=== PATIENT | female | born 1990 | race Two or more races ===

== ENCOUNTER 2020-07-04 00:21 | Emergency (ER) | payer SELFPAY ==
[~2020-07-04] VITALS: Ht 162.6 cm; Wt 83.6 kg
[2020-07-04 01:00] LABS: BILIRUBIN,URINE NEGATIVE (NEG); CLARITY,URINE CLEAR; COLOR,URINE YELLOW; NITRITE,URINE NEGATIVE (NEG); PROTEIN,URINE NEGATIVE (NEG-TRACE); UROBILINOGEN,URINE 0.2 mg/dL (0.2 mg/dL)
[2020-07-04 01:12] LABS: BACTERIA,URINE FEW /HPF (0-FEW)
[2020-07-04] MEDS ORDERED: SIMETHICONE 80 MG TAB.CHEW PO ONE (01:30)
[2020-07-04] MEDS ORDERED: KETOROLAC 60 MG/2 ML VIAL. IM ONE (01:30)
--- NOTE | 2020-07-04 02:00 | RAD ---
INDICATION: Reason: bloating, constipation, SBO? / Spl. Instructions: / History: COMPARISON: None. IMPRESSION: 3 views of the chest and abdomen obtained. Cardiac silhouette is unremarkable. There is some mild haz iness at the lower lungs bilaterally. Could be from atelectasis but would correlate with symptoms to ensure that there is not a groundglass infiltrate contributing. Moderate stool in the right side of t he colon. Air scattered throughout the large and small bowel in a nonspecific but not grossly obstruc tive pattern. There is some prominent mucosal folds at the transverse colon. Would correlate with sym ptoms given that a region of wall thickening from causes such as colitis could have this appearance. This could also be from a region of contraction. Electronically signed by: Johnie Spencer MD (07/04/2020 1:58 AM) [id number]
[2020-07-04] MEDS ORDERED: HYOSCYAMINE 0.125 MG TAB.RAPDIS PO ONE (02:45)
[2020-07-04 02:57] VITALS: BP 95/50
--- NOTE | 2020-07-04 03:10 | RAD ---
INDICATION: Reason: severe pelvic pain / Spl. Instructions: / History: COMPARISON: None. TECHNIQUE: Grayscale and color ultrasound images uterus and adnexa. Transabdominal and transvaginal images obtained. Transvaginal images were needed to better visualize structures that were limited on transabdominal imaging. FINDINGS: Uterus: 101 x 93 x 45 mm. The endometrial stripe is not well seen. Multiple masses within the uterus including one posteriorly measuring 40 x 35 mm, posteriorly at lowe r uterine segment measuring 68 x 74 mm and one anteriorly measuring 60 x 40 mm. Ovaries are obscured by bowel gas. IMPRESSION: * Multiple masses are seen within the uterus and most commonly from fibroid. * The ovaries are obscured by overlying structures. * Small amount of free fluid within the cul-de-sac. Electronically signed by: Johnie Spencer MD (07/04/2020 3:07 AM) [id number]
--- NOTE | 2020-07-04 03:14 | ED.ADGEN ---
Past Medical History Past Medical History: No Pertinent History Past Surgical History: No Surgical History Smoking Status: Never Smoker Alcohol Use: None General Adult EDM: Chief Complaint: MENSTRUAL PAIN/CRAMPS HPI: HPI: Patient is a 29-year-old female who presents to the emergency room complaining of severe lower abdominal cramping. Patient states she gets cramps like this every month with her. But typically they go away much more quickly than this. She has been on her period for the last 7 days. She states they have been constant since the start of her period. She has tried multiple things at home without any kind of relief. Typically her cramps only last 2 or 3 days but this has been very consistent with what her cramps are normally like. She denies vomiting but she does have some nausea and constipation. She denies any d ysuria. She does not have any abnormal vaginal discharge. She has never seen [facility] for her periods. She has tried heating pads and Aleve at home. Review of Systems: Review of Systems: Complete ROS is negative unless otherwise documented in HPI Current Medications: Current Medications Medications (Trade) Dose Ordered Sig/Gin Start Time Stop Time Status Last Admin Dose Admin Hyoscyamine (Anaspaz) 0.25 mg 1X ONCE 07/04/20 02:45 07/04/20 02:49 DC 07/04/20 02:56 0.25 MG Ketorolac Tromethamine (Toradol Im) 60 mg 1X ONCE 07/04/20 01:30 07/04/20 01:31 DC 07/04/20 01:22 60 MG Simethicone (Gas-X) 80 mg 1X ONCE 07/04/20 01:30 07/04/20 01:31 DC 07/04/20 01:23 80 MG Allergies: Allergies: Allergies Coded Allergies Type Severity Reaction Last Updated Verified No Known Drug Allergies 07/04/20 No Physical Exam: PE: General: Awake, alert, mild distress, crying well Nourished, well hydrated. Cooperative HEENT: Atraumatic, EOMI, PERRL, airway patent, moist oral mucosa Neck: Supple, trachea midline Respiratory: CTA bilaterally, normal effort, no wheezing/crackles CV: RRR, no murmur, cap refill <2 GI: Soft, nondistended, nontender, no masses MSK: No obvious deformities Skin: Warm, dry, intact Neuro: A&O x3, speech NL, sensory and motor grossly intact, no focal deficits Psych: Normal affect, normal mood, not suicidal or homicidal Current Patient Data: Labs: Laboratory Tests Test 07/04/20 00:33 07/04/20 00:53 Urine Collection Type Unknown Urine Color Yellow Urine Clarity Clear Urine pH 7.0 (<5.0-8.0) Urine Specific [place] 1.025 (1.000-1.030) Urine Protein Negative mg/dL (NEG-TRACE) Urine Glucose (UA) Negative mg/dL (NEG) Urine Ketones (Stick) Negative mg/dL (NEG) Urine Blood Trace (NEG) Urine Nitrite Negative (NEG) Urine Bilirubin Negative (NEG) Urine Urobilinogen Dipstick 0.2 mg/dL (0.2 mg/dL) Urine Leukocyte Esterase Negative (NEG) Urine RBC 3-5 /HPF (0-2) Urine WBC 1-4 /HPF (0-4) Urine Squamous Epithelial Cells Few /LPF Urine Bacteria Few /HPF (0-FEW) Urine Mucus Marked /LPF POC Urine HCG, Qualitative Hcg negative (Negative) Vital Signs: Vital Signs Date Time Temp Pulse Resp B/P (MAP) Pulse Ox O2 Delivery O2 Flow Rate FiO2 07/04/20 02:57 60 16 95/50 (65) 98 Room Air 07/04/20 00:45 98.6 98.6 EKG: EKG: [] Heart Score: Risk Factors: Risk Factors: DM, Current or recent (<one month) smoker, HTN, HLP, family his tory of CAD, obesity. Risk Scores: Score 0 - 3: 2.5% MACE over next 6 weeks - Discharge Home Score 4 - 6: 20.3% MACE over next 6 weeks - Admit for Clinical Observation Score 7 - 10: 72.7% MACE over next 6 weeks - Early Invasive Strategies Radiology/Procedures: Radiology/Procedures: [] Course & Med Decision Making: Course & Med Decision Making Pertinent Labs and Imaging studies reviewed. (See chart for details) Patient is a 29-year-old female who presents the emergency room as dysfunctional uterine bleeding. X-ray was done to rule out an obstruction does not show any signs of air-fluid levels. Patient is not . Patient was given Toradol and simethicone on arrival. After 45 minutes patient continues to cry and have no relief of symptoms. Levsin was ordered and ultrasound was done given her severe pain. Ultrasound shows multiple fibroids. Patient did have resolution of her symptoms. I have highly recommended that she follows up with an [facility]. Patient's test results and vitals while in the ED were fully reviewed and discussed with the patient. Patient is stable and at this time does not need admission to the hospital. We have discussed strict return precautions and the importance of following up with their Primary Care Physician. Patient stated understanding and was given an opportunity to ask any questions. Patient is in agreement with plan. Dragon Disclaimer: [email or web address] Disclaimer: This electronic medical record was generated, in whole or in part, using a voice recognition dictation system. Departure Departure Impression: Primary Impression: Dysfunctional uterine bleeding Additional Impression: Fibroid, uterine Disposition: 01 DC HOME SELF CARE/HOMELESS Condition: STABLE Referrals: NO PCP (PCP) Patient Instructions: Uterine Fibroid, [id number] Scripts Hyoscyamine Sulfate (LEVSIN-SL) 0.125 Mg Tab.subl 0.125 MG SL Q4HRS PRN for cramps, #20 TAB Prov: JESSICA LUGO MD 07/04/20 Problem Qualifiers JESSICA LUGO MD Jul 04, 2020 03:14
[2020-07-04] MEDS ORDERED: HYOS0.1265 SL (03:25)
[2020-07-04] MEDS ORDERED: OXYC1TAB15 PO (23:35)
[2020-07-04] MEDS ORDERED: KETO10TA PO (23:35)
== END 2020-07-04 03:35 | disposition home or self-care (01) ==
LOC: ER 00:21
DX: N93.8 Other specified abnormal uterine and vaginal bleeding (principal); D25.9 Leiomyoma of uterus, unspecified; R11.0 Nausea; R10.30 Lower abdominal pain, unspecified
CPT/HCPCS: 74022; 76856; 81001; 81025; 96372; 99285; J1885

== ENCOUNTER 2020-07-04 20:33 | Emergency (ER) | payer SELFPAY ==
[~2020-07-04] VITALS: Ht 162.6 cm; Wt 37.1 kg
[~2020-07-04 20:33] MED LIST: HYOS0.1265 SL
[2020-07-04] MEDS ORDERED: CONTRAST GIVEN. MC PRN (21:15)
[2020-07-04] MEDS ORDERED: IOHEXOL 300 MG/ML 100ML VIAL. IV ONE (21:15)
[2020-07-04] MEDS ORDERED: IOHEXOL 240 MG/ML 50ML VIAL. PO ONE (21:15)
[2020-07-04 21:43] LABS: BASO # 0.1 x10^3/uL (0.0-0.2); BASO % 1 % (0-3); EOS # 0.3 x10^3/uL (0.0-0.7); EOS % 3 % (0-3); HEMATOCRIT 39.2 % (36.0-47.0); HEMOGLOBIN 13.2 g/dL (12.0-15.5); LYMPH # 3.8 x10^3/uL (1.0-4.8); LYMPH % 33 % (24-48); MEAN CORPUSCULAR HEMOGLOBIN 28 pg (25-35); MEAN CORPUSCULAR HGB CONC 34 g/dL (31-37); MEAN CORPUSCULAR VOLUME 83 fL (79-100); MONO # 0.8 x10^3/uL (0.0-1.1); MONO % 7 % (0-9); NEUT # 6.6 x10^3/uL (1.8-7.7); NEUT % 57 % (31-73); PLATELET COUNT 445 x10^3/uL (140-400); RED BLOOD COUNT 4.71 x10^6/uL (3.50-5.40); WHITE BLOOD COUNT 11.7 x10^3/uL (4.0-11.0)
[2020-07-04 21:57] LABS: CALCIUM 8.9 mg/dL (8.5-10.1); CREATININE 0.7 mg/dL (0.6-1.0); GFR 100.4
[2020-07-04] MEDS ORDERED: MORPHINE SULFATE 10 MG/ML VIAL. IV ONE (22:00)
[2020-07-04] MEDS ORDERED: ONDANSETRON PF 4 MG/2 ML VIAL. IVP ONE (22:00)
[2020-07-04] MEDS ORDERED: IV NORMAL SALINE 1000ML BAG 1,000 ML IV ONE (22:00)
[2020-07-04 22:04] LABS: ALBUMIN 3.8 g/dL (3.4-5.0); ALBUMIN/GLOBULIN RATIO 1.1 (1.0-1.7); TOTAL BILIRUBIN 0.5 mg/dL (0.2-1.0); TOTAL PROTEIN 7.2 g/dL (6.4-8.2)
--- NOTE | 2020-07-04 22:14 | ED.ADGEN ---
Past Medical History Past Medical History: No Pertinent History Past Surgical History: No Surgical History Smoking Status: Never Smoker Alcohol Use: None General Adult EDM: Chief Complaint: ABDOMINAL PAIN HPI: HPI: Patient is a 29-year-old female who presents to the emergency room complaining of mid abdominal pain down that has been ongoing for the last week. She was evaluated here in the emergency room for the same symptoms last night and had an ultrasound done of her uterus that showed several fibroids. She states that the pain came back shortly after being discharged home. She continues to have a lot of cramping and she is bleeding. She thinks that it is possible that this may be rectal bleeding but she is unsure. She states the pain is severe and constant. She has had some nausea and vomiting. She denies any kind of fever Review of Systems: Review of Systems: Complete ROS is negative unless otherwise documented in HPI Current Medications: Current Medications Medications (Trade) Dose Ordered Sig/Gin Start Time Stop Time Status Last Admin Dose Admin Info (CONTRAST GIVEN -- Rx MONITORING) 1 each PRN DAILY PRN 07/04/20 21:15 07/06/20 21:14 Iohexol (Omnipaque 240 Mg/ml) 50 ml 1X ONCE 07/04/20 21:15 07/04/20 21:16 DC 07/04/20 20:55 50 ML Iohexol (Omnipaque 300 Mg/ml) 75 ml 1X ONCE 07/04/20 21:15 07/04/20 21:16 DC 07/04/20 22:08 75 ML Ketorolac Tromethamine (Toradol 30mg Vial) 30 mg 1X ONCE 07/04/20 23:30 07/04/20 23:31 DC 07/04/20 23:34 30 MG Morphine Sulfate (Morphine Sulfate) 5 mg 1X ONCE 07/04/20 22:00 07/04/20 22:01 DC 07/04/20 21:58 5 MG Ondansetron HCl (Zofran) 4 mg 1X ONCE 07/04/20 22:00 07/04/20 22:01 DC 07/04/20 21:57 4 MG Sodium Chloride 1,000 ml @ 1,000 mls/hr 1X ONCE 07/04/20 22:00 07/04/20 22:59 DC 07/04/20 21:57 1,000 MLS/HR Allergies: Allergies: Allergies Coded Allergies Type Severity Reaction Last Updated Verified No Known Drug Allergies 07/04/20 No Physical Exam: PE: General: Awake, alert, NAD. Well Nourished, well hydrated. Cooperative HEENT: Atraumatic, EOMI, PERRL, airway patent, moist oral mucosa Neck: Supple, trachea midline Respiratory: CTA bilaterally, normal effort, no wheezing/crackles CV: RRR, no murmur, cap refill <2 GI: Soft, distended, diffuse tenderness worse in the left lower abdomen MSK: No obvious deformities Skin: Warm, dry, intact Neuro: A&O x3, speech NL, sensory and motor grossly intact, no focal deficits Psych: Normal affect, normal mood, not suicidal or homicidal Current Patient Data: Labs: Laboratory Tests Test 07/04/20 21:30 White Blood Count 11.7 x10^3/uL (4.0-11.0) H Red Blood Count 4.71 x10^6/uL (3.50-5.40) Hemoglobin 13.2 g/dL (12.0-15.5) Hematocrit 39.2 % (36.0-47.0) Mean Corpuscular Volume 83 fL (79-100) Mean Corpuscular Hemoglobin 28 pg (25-35) Mean Corpuscular Hemoglobin Concent 34 g/dL (31-37) Red Cell Distribution Width 13.0 % (11.5-14.5) Platelet Count 445 x10^3/uL (140-400) H Neutrophils (%) (Auto) 57 % (31-73) Lymphocytes (%) (Auto) 33 % (24-48) Monocytes (%) (Auto) 7 % (0-9) Eosinophils (%) (Auto) 3 % (0-3) Basophils (%) (Auto) 1 % (0-3) Neutrophils # (Auto) 6.6 x10^3/uL (1.8-7.7) Lymphocytes # (Auto) 3.8 x10^3/uL (1.0-4.8) Monocytes # (Auto) 0.8 x10^3/uL (0.0-1.1) Eosinophils # (Auto) 0.3 x10^3/uL (0.0-0.7) Basophils # (Auto) 0.1 x10^3/uL (0.0-0.2) Sodium Level 140 mmol/L (136-145) Potassium Level 4.0 mmol/L (3.5-5.1) Chloride Level 102 mmol/L (98-107) Carbon Dioxide Level 26 mmol/L (21-32) Anion Gap 12 (6-14) Blood Urea Nitrogen 12 mg/dL (7-20) Creatinine 0.7 mg/dL (0.6-1.0) Estimated GFR (Cockcroft-Gault) 100.4 BUN/Creatinine Ratio 17 (6-20) Glucose Level 99 mg/dL (70-99) Calcium Level 8.9 mg/dL (8.5-10.1) Total Bilirubin 0.5 mg/dL (0.2-1.0) Aspartate Amino Transferase (AST) 18 U/L (15-37) Alanine Aminotransferase (ALT) 39 U/L (14-59) Alkaline Phosphatase 88 U/L (46-116) Total Protein 7.2 g/dL (6.4-8.2) Albumin 3.8 g/dL (3.4-5.0) Albumin/Globulin Ratio 1.1 (1.0-1.7) Laboratory Tests 07/04/20 21:30 Laboratory Tests 07/04/20 21:30 Vital Signs: Vital Signs Date Time Temp Pulse Resp B/P (MAP) Pulse Ox O2 Delivery O2 Flow Rate FiO2 07/04/20 20:35 98.2 84 18 113/84 (94) 98 Room Air 98.2 EKG: EKG: [] Heart Score: Risk Factors: Risk Factors: DM, Current or recent (<one month) smoker, HTN, HLP, family history of CAD, obesity. Risk Scores: Score 0 - 3: 2.5% MACE over next 6 weeks - Discharge Home Score 4 - 6: 20.3% MACE over next 6 weeks - Admit for Clinical Observation Score 7 - 10: 72.7% MACE over next 6 weeks - Early Invasive Strategies Radiology/Procedures: Radiology/Procedures: [] Course & Med Decision Making: Course & Med Decision Making Pertinent Labs and Imaging studies reviewed. (See chart for details) Patient 29-year-old female presents to the emergency room complaining of severe abdominal pain. I evaluated this patient yesterday for the same complaints. Patient continues to have severe pain. CT abdomen pelvis and abdominal labs were ordered. Lab work is unremarkable. CT abdomen pelvis shows a large uterus with multiple fibroids. Pain is likely secondary to her fibroids. We will treat her symptomatically. I have recommended that she follows up with [facility] as soon as possible and that she should call them tomorrow. Patient's test results and vitals while in the ED were fully reviewed and discussed with the patient. Patient is stable and at this time does not need admission to the hospital. We have discussed strict return precautions and the importance of following up with their Primary Care Physician. Patient stated understanding and was given an opportunity to ask any questions. Patient is in agreement with plan. Dragon Disclaimer: Dragon Disclaimer: Complete ROS is negative unless otherwise documented in HPI Departure Departure Impression: Primary Impression: Uterine fibroid Additional Impression: Abdominal cramping Disposition: 01 DC HOME SELF CARE/HOMELESS Condition: IMPROVED Referrals: NO PCP (PCP) CARLOS EDUARDO RAMIREZ Jr, MD Patient Instructions: Uterine Bleeding, Dysfunctional Scripts Oxycodone/Apap 5-325 (PERCOCET 5-325 MG TABLET ) 1 Each Tablet 1 TAB PO PRN Q6HRS PRN for PAIN, #10 TAB 0 Refills Prov: JESSICA LUGO MD 07/04/20 Ketorolac Tromethamine (KETOROLAC TROMETHAMINE) 10 Mg Tablet 1 TAB PO TID PRN for cramping, #15 TAB Prov: JESSICA LUGO MD 07/04/20 Problem Qualifiers JESSICA LUGO MD Jul 04, 2020 22:14
--- NOTE | 2020-07-04 22:26 | RAD ---
Exam: CT of abdomen and pelvis with contrast INDICATION: Abdominal pain TECHNIQUE: Sequential axial images through the abdomen and pelvis obtained following the administrati on of 75 mL of Omni 300 IV contrast. Sagittal and coronal reformatted images were reconstructed from the axial data and reviewed. Comparisons: None FINDINGS: Heart size is normal. No pericardial strandy opacities at dependent portion lungs likely representing atelectasis. Liver, spleen, pancreas, gallbladder and adrenals are unremarkable. No perinephric inflammation or hydronephrosis. No renal or ureteral calculi are identified. Bladder is decompressed not well evaluated. Uterus is enlarged with numerous hypoattenuating masses w ithin the uterus. No abnormal adnexal mass. Large and small bowel are unremarkable. Appendix is normal. No free intra-abdominal air or fluid. No obstruction. Abdominal aorta has a normal course and caliber. Abdominal vasculature is patent. No enlarged abdominal lymph nodes are identified. No suspicious osseous lesions or acute fractures. IMPRESSION: 1. Enlarged uterus with numerous hypoattenuating masses favored represent fibroid uterus. 2. Otherwise, no acute process identified within the abdomen or pelvis. Exposure: One or more of the following in the visualized dose reduction techniques were utilized for this examination: 1. Automated exposure control 2. Adjustment of the MA and/or KV according to patient size 3. Use of iterative of reconstructive technique Electronically signed by: Yanet Rios MD (07/04/2020 10:23 PM) [facility]
[2020-07-04] MEDS ORDERED: KETOROLAC 30 MG/ML VIAL. IVP ONE (23:30)
[2020-07-04] MEDS ORDERED: KETO10TA PO (23:35)
[2020-07-04] MEDS ORDERED: OXYC1TAB15 PO (23:35)
[2020-07-05] MEDS ORDERED: ONDANSETRON PF 4 MG/2 ML VIAL. IVP ONE (00:30)
[2020-07-05] MEDS ORDERED: METHOCARBAMOL 750 MG TABLET PO ONE (00:45)
[2020-07-05 01:26] VITALS: BP 122/60
[2020-07-05] MEDS ORDERED: KETOROLAC 30 MG/ML VIAL. IVP ONE (02:00)
== END 2020-07-05 02:20 | disposition home or self-care (01) ==
LOC: ER 20:33
DX: D25.9 Leiomyoma of uterus, unspecified (principal); R11.2 Nausea with vomiting, unspecified; R10.30 Lower abdominal pain, unspecified
CPT/HCPCS: 36415; 74177; 80053; 85025; 96361; 96374; 96375; 99285; J1885; J2270; J2405; J7030; Q9966; Q9967

== ENCOUNTER 2020-09-16 22:23 | Emergency (ER) | payer SELFPAY ==
[~2020-09-16] VITALS: Ht 160 cm; Wt 84.0 kg
[~2020-09-16 22:23] MED LIST changes: +KETO10TA PO; +OXYC1TAB15 PO
[2020-09-16 23:09] LABS: BASO # 0.1 x10^3/uL (0.0-0.2); BASO % 1 % (0-3); EOS % 0 % (0-3); HEMATOCRIT 41.3 % (36.0-47.0); LYMPH # 1.7 x10^3/uL (1.0-4.8); LYMPH % 13 % (24-48); MEAN CORPUSCULAR HEMOGLOBIN 27 pg (25-35); MEAN CORPUSCULAR HGB CONC 34 g/dL (31-37); MEAN CORPUSCULAR VOLUME 80 fL (79-100); MONO # 0.3 x10^3/uL (0.0-1.1); MONO % 2 % (0-9); NEUT # 11.7 x10^3/uL (1.8-7.7); NEUT % 85 % (31-73); PLATELET COUNT 418 x10^3/uL (140-400); RED BLOOD COUNT 5.14 x10^6/uL (3.50-5.40); RED CELL DISTRIBUTION WIDTH 13.7 % (11.5-14.5); WHITE BLOOD COUNT 13.8 x10^3/uL (4.0-11.0)
[2020-09-16 23:10] LABS: BILIRUBIN,URINE NEGATIVE (NEG); CLARITY,URINE CLEAR; COLOR,URINE YELLOW; NITRITE,URINE NEGATIVE (NEG); PH,URINE 8.5 (<5.0-8.0); PROTEIN,URINE NEGATIVE (NEG-TRACE); UROBILINOGEN,URINE 0.2 mg/dL (0.2 mg/dL)
[2020-09-16 23:17] LABS: BACTERIA,URINE FEW /HPF (0-FEW); RBC,URINE RARE /HPF (0-2); WBC,URINE RARE /HPF (0-4)
[2020-09-16 23:26] LABS: CALCIUM 8.6 mg/dL (8.5-10.1); CREATININE 0.7 mg/dL (0.6-1.0); GFR 100.4; POTASSIUM 3.7 mmol/L (3.5-5.1)
[2020-09-16 23:29] LABS: BARBITURATES NEG (NEG); BENZODIAZEPINES NEG (NEG); CANNABINOIDS NEG (NEG); COCAINE NEG (NEG); METHADONE NEG (NEG); OPIATES NEG (NEG); PHENCYCLIDINE NEG (NEG)
[2020-09-16 23:30] LABS: AMPHETAMINE/METHAMPHETAMINE NEG (NEG)
[2020-09-16] MEDS ORDERED: LIDO:MAALOX 1:1 20 ML SINGLE DOSE. SWSW ONE (23:30)
[2020-09-16] MEDS ORDERED: PROCHLORPERAZINE 10 MG/2 ML VIAL. IV ONE (23:30)
[2020-09-16] MEDS ORDERED: MORPHINE SULFATE 10 MG/ML VIAL. IV ONE (23:30)
[2020-09-16] MEDS ORDERED: FAMOTIDINE 20 MG/2 ML VIAL IVP ONE (23:30)
[2020-09-16] MEDS ORDERED: IV NORMAL SALINE 1000ML BAG 1,000 ML IV ONE (23:30)
[2020-09-16 23:33] LABS: ALBUMIN 3.8 g/dL (3.4-5.0); MAGNESIUM 1.7 mg/dL (1.8-2.4); TOTAL BILIRUBIN 0.7 mg/dL (0.2-1.0); TOTAL PROTEIN 7.6 g/dL (6.4-8.2)
--- NOTE | 2020-09-16 23:47 | PHYS DOC ---
Past Medical History Past Medical History: No Pertinent History, Anxiety Past Surgical History: No Surgical History Additional Past Surgical Histo: BIOPSY RIGHT BREST Smoking Status: Never Smoker Alcohol Use: None General Adult EDM: Chief Complaint: ABDOMINAL PAIN HPI: HPI: Patient is a 29 year old female with a history of fibroids presenting to the ED today complaining of 10 out of 10 epigastric abdominal pain with nausea vomiting, pain described as sharp and constant, symptoms began at 8:30 AM this morning. Patient is in the ED thrashing around the bed, restless, appears anxious, reports history of anxiety. She states she had similar symptoms in June but this pain is slightly higher than what she had in June. She states in June she was seen in the ED twice for abdominal pain and diagnosed with fibroids. She states her menstrual cycle began today. She states she was seen in [place] with epigastric abdominal pain in July 2020, she states she was diagnosed with inflammation in her intestines. Boyfriend interpreted for [place] Review of Systems: Review of Systems: Constitutional: Denies fever or chills. [] Eyes: Denies change in visual acuity. [] HENT: Denies nasal congestion or sore throat. [] Respiratory: Denies cough or shortness of breath. [] Cardiovascular: Denies chest pain or edema. [] GI: Reports abdominal pain, nausea vomiting, abdominal bloody stools or diarrhea. [] : Denies dysuria. [] Musculoskeletal: Denies back pain or joint pain. [] Integument: Denies rash. [] Neurologic: Denies headache, focal weakness or sensory changes. [] Psychiatric: Reports anxiety Heart Score: Risk Factors: Risk Factors: DM, Current or recent (<one month) smoker, HTN, HLP, family history of CAD, obesity. Risk Scores: Score 0 - 3: 2.5% MACE over next 6 weeks - Discharge Home Score 4 - 6: 20.3% MACE over next 6 weeks - Admit for Clinical Observation Score 7 - 10: 72.7% MACE over next 6 weeks - Early Invasive Strategies Current Medications: Current Medications Medications (Trade) Dose Ordered Sig/Gin Start Time Stop Time Status Last Admin Dose Admin Famotidine (Pepcid Vial) 20 mg 1X ONCE 09/16/20 23:30 09/16/20 23:31 DC 09/16/20 23:18 20 MG Morphine Sulfate (Morphine Sulfate) 5 mg 1X ONCE 09/16/20 23:30 09/16/20 23:31 DC 09/16/20 23:19 5 MG Multi-Ingredient Mouthwash/Gargle (Gi Cocktail) 20 ml 1X ONCE 09/16/20 23:30 09/16/20 23:31 DC 09/16/20 23:17 20 ML Prochlorperazine Edisylate (Compazine) 10 mg 1X ONCE 09/16/20 23:30 09/16/20 23:31 DC 09/16/20 23:17 10 MG Sodium Chloride 1,000 ml @ 1,000 mls/hr 1X ONCE 09/16/20 23:30 09/17/20 00:29 09/16/20 23:17 1,000 MLS/HR Allergies: Allergies: Allergies Coded Allergies Type Severity Reaction Last Updated Verified No Known Drug Allergies 07/04/20 No Physical Exam: PE: Constitutional: Well developed, well nourished, no acute distress, non-toxic appearance. [] HENT: Normocephalic, atraumatic, bilateral external ears normal, oropharynx moist, no oral exudates, nose normal. [] Eyes: PERRLA, EOMI, conjunctiva normal, no discharge. [] Neck: Normal range of motion, no tenderness, supple, no stridor. [] Cardiovascular:Heart rate regular rhythm, no murmur [] Lungs & Thorax: Bilateral breath sounds clear to auscultation [] Abdomen: Bowel sounds normal, soft, mild epigastric tenderness, no right lower quadrant tenderness, no masses, no pulsatile masses. [] Skin: Warm, dry, no erythema, no rash. [] Back: No tenderness, no CVA tenderness. [] Extremities: No tenderness, no cyanosis, no clubbing, ROM intact, no edema. [] Neurologic: Alert and oriented X 3, normal motor function, normal sensory function, no focal deficits noted. [] Psychologic: Anxious, thrashing herself around the bed. Current Patient Data: Labs: Laboratory Tests Test 09/16/20 22:50 09/16/20 22:54 09/16/20 22:58 Urine Collection Type Void Urine Color Yellow Urine Clarity Clear Urine pH 8.5 (<5.0-8.0) Urine Specific [place] 1.025 (1.000-1.030) Urine Protein Negative mg/dL (NEG-TRACE) Urine Glucose (UA) Negative mg/dL (NEG) Urine Ketones (Stick) >=80 mg/dL (NEG) Urine Blood Negative (NEG) Urine Nitrite Negative (NEG) Urine Bilirubin Negative (NEG) Urine Urobilinogen Dipstick 0.2 mg/dL (0.2 mg/dL) Urine Leukocyte Esterase Negative (NEG) Urine RBC Rare /HPF (0-2) Urine WBC Rare /HPF (0-4) Urine Squamous Epithelial Cells Mod /LPF Urine Bacteria Few /HPF (0-FEW) Urine Mucus Mod /LPF Urine Opiates Screen Neg (NEG) Urine Methadone Screen Neg (NEG) Urine Barbiturates Neg (NEG) Urine Phencyclidine Screen Neg (NEG) Urine Amphetamine/Methamphetamine Neg (NEG) Urine Benzodiazepines Screen Neg (NEG) Urine Cocaine Screen Neg (NEG) Urine Cannabinoids Screen Neg (NEG) Urine Ethyl Alcohol Neg (NEG) POC Urine HCG, Qualitative Hcg negative (Negative) White Blood Count 13.8 x10^3/uL (4.0-11.0) H Red Blood Count 5.14 x10^6/uL (3.50-5.40) Hemoglobin 14.0 g/dL (12.0-15.5) Hematocrit 41.3 % (36.0-47.0) Mean Corpuscular Volume 80 fL (79-100) Mean Corpuscular Hemoglobin 27 pg (25-35) Mean Corpuscular Hemoglobin Concent 34 g/dL (31-37) Red Cell Distribution Width 13.7 % (11.5-14.5) Platelet Count 418 x10^3/uL (140-400) H Neutrophils (%) (Auto) 85 % (31-73) H Lymphocytes (%) (Auto) 13 % (24-48) L Monocytes (%) (Auto) 2 % (0-9) Eosinophils (%) (Auto) 0 % (0-3) Basophils (%) (Auto) 1 % (0-3) Neutrophils # (Auto) 11.7 x10^3/uL (1.8-7.7) H Lymphocytes # (Auto) 1.7 x10^3/uL (1.0-4.8) Monocytes # (Auto) 0.3 x10^3/uL (0.0-1.1) Eosinophils # (Auto) 0.0 x10^3/uL (0.0-0.7) Basophils # (Auto) 0.1 x10^3/uL (0.0-0.2) Sodium Level 137 mmol/L (136-145) Potassium Level 3.7 mmol/L (3.5-5.1) Chloride Level 100 mmol/L (98-107) Carbon Dioxide Level 20 mmol/L (21-32) L Anion Gap 17 (6-14) H Blood Urea Nitrogen 12 mg/dL (7-20) Creatinine 0.7 mg/dL (0.6-1.0) Estimated GFR (Cockcroft-Gault) 100.4 BUN/Creatinine Ratio 17 (6-20) Glucose Level 163 mg/dL (70-99) H Calcium Level 8.6 mg/dL (8.5-10.1) Magnesium Level 1.7 mg/dL (1.8-2.4) L Total Bilirubin 0.7 mg/dL (0.2-1.0) Aspartate Amino Transferase (AST) 13 U/L (15-37) L Alanine Aminotransferase (ALT) 21 U/L (14-59) Alkaline Phosphatase 90 U/L (46-116) Total Protein 7.6 g/dL (6.4-8.2) Albumin 3.8 g/dL (3.4-5.0) Albumin/Globulin Ratio 1.0 (1.0-1.7) Lipase 59 U/L (73-393) L Ethyl Alcohol Level < 10 mg/dL (0-10) Laboratory Tests 09/16/20 22:58 Laboratory Tests 09/16/20 22:58 Vital Signs: Vital Signs Date Time Temp Pulse Resp B/P (MAP) Pulse Ox O2 Delivery O2 Flow Rate FiO2 09/16/20 23:19 30 100 09/16/20 23:09 98.4 68 151/79 (103) 98.4 EKG: EKG: [] Radiology/Procedures: Radiology/Procedures: []PROCEDURE: CT ABDOMEN PELVIS WO CONTRAST Study: CT abdomen/pelvis without intravenous contrast Indication: Abdominal pain. Comparison: 07/04/2020 Technique: Helical CT imaging performed of the abdomen and pelvis without the use of intravenous contrast. Sagittal and coronal reformats were obtained. One or more of the following individualized dose reduction techniques were utilized for this examination: 1. Automated exposure control 2. Adjustment of the mA and/or kV according to patient size 3. Use of iterative reconstruction technique. Findings: Inherently limited evaluation without intravenous contrast. Chest: No significant interval change. Redemonstration of partially imaged masslike foci within both breasts which have not significant changed in size and most likely represent fibroadenomas. Liver: No focal parenchymal abnormality. Gallbladder/Biliary Tree: No CT manifestations of acute cholecystitis. Normal common duct caliber. Pancreas: Unremarkable. Spleen: Unremarkable. Adrenal Glands: Unremarkable. Kidneys/Ureters/Bladder: No nephrolithiasis or collecting system dilatation. Unremarkable bladder. Reproductive Organs: Redemonstrated enlarged and lobulated uterus typical of multiple underlying fibroids. The uterus overall has not significantly changed in size. The fibroids were better seen on the comparison exam which was with contrast. Colon: Within normal limits. Appendix: Normal. Small Bowel: Nonobstructed. Stomach: Unremarkable. Vasculature: Nonaneurysmal aorta. Lymph Nodes: Within normal limits. Peritoneum and Body Wall: Small volume free pelvic fluid which is most likely physiologic given patient age. No pneumoperitoneum. Bones: No acute or aggressive osseous process. Miscellaneous: None. Impression: 1. No acute abnormality seen throughout the abdomen or pelvis. 2. Redemonstration of several prominent fibroids. There are also masslike foci in both breasts that have not significantly changed from the prior and are most likely fibroadenomas. Recommend correlation with clinical exam. Electronically signed by: SARAH BARROSO MD (09/16/2020 11:56 PM) [facility] DICTATED and SIGNED BY: SARAH BARROSO MD DATE: 09/16/20 [id number] 0 Course & Med Decision Making: Course & Med Decision Making Pertinent Labs and Imaging studies reviewed. (See chart for details) This is a 29-year-old female patient with known history of anxiety and uterine fibroids presenting to the ED today complaining of moderate epigastric abdominal pain with nausea and vomiting that began today. Also complaining of anxiety. Patient is thrashing around the bed. Appears very anxious. CBC with a WBC of 13.8, CMP with no acute findings. UDS is negative. UA negative for UTI, noted for ketones. Given IV fluids, GI cocktail, famotidine, Compazine and [address] of the abdomen and pelvic noted for fibroids otherwise no acute findings. Also noted for fibroadenoma both breasts. Discharge to home. Follow-up with [facility] [place] Disclaimer: [place] Disclaimer: This electronic medical record was generated, in whole or in part, using a voice recognition dictation system. Departure Departure Impression: Primary Impression: Anxiety Additional Impressions: Epigastric pain Uterine fibroid Qualified Codes: D25.9 - Leiomyoma of uterus, unspecified Fibroadenoma of both breasts Disposition: HOME SELF CARE/HOMELESS Condition: STABLE Referrals: NO PCP (PCP) ADONIS FORTE MD followup with your OBGYN in 1 week Patient Instructions: Anxiety and Panic Attacks, [id number], Fibroadenoma, [id number], Uterine Fibroid, [id number] Additional Instructions: You were evaluated in the emergency room, you are noted to have fibroids. Please follow-up with an [facility]. You also have fibroadenoma/breast masses in both breasts please follow up with the OBGYN for this too Scripts Naproxen (NAPROXEN) 500 Mg Tablet 1 TAB PO BID PRN for PAIN, #30 TAB 0 Refills Prov: KRISTIAN PEOPLES APRN 09/17/20 Hydrocodone Bit/Acetaminophen (HYDROCODONE-APAP 5-325 ) 1 Tab Tablet 1 TAB PO PRN Q6HRS PRN for PAIN, #14 TAB 0 Refills Prov: KRISTIAN PEOPLES APRN 09/17/20 Dicyclomine Hcl (DICYCLOMINE HCL) 20 Mg Tablet 1 TAB PO TID, #30 TAB 1 Refill Prov: KRISTIAN PEOPLES APRN 09/17/20 Hydroxyzine Hcl (HYDROXYZINE HCL) 25 Mg Tablet 1 TAB PO TID, #30 TAB Prov: KRISTIAN PEOPLES APRN 09/17/20 KRISTIAN PEOPLES APRN Sep 16, 2020 23:47
--- NOTE | 2020-09-16 23:59 | RAD ---
Study: CT abdomen/pelvis without intravenous contrast Indication: Abdominal pain. Comparison: 07/04/2020 Technique: Helical CT imaging performed of the abdomen and pelvis without the use of intravenous cont rast. Sagittal and coronal reformats were obtained. One or more of the following individualized dose reduction techniques were utilized for this examinat ion: 1. Automated exposure control 2. Adjustment of the mA and/or kV according to patient size 3. Use of iterative reconstruction technique. Findings: Inherently limited evaluation without intravenous contrast. Chest: No significant interval change. Redemonstration of partially imaged masslike foci within both breasts which have not significant changed in size and most likely represent fibroadenomas. Liver: No focal parenchymal abnormality. Gallbladder/Biliary Tree: No CT manifestations of acute cholecystitis. Normal common duct caliber. Pancreas: Unremarkable. Spleen: Unremarkable. Adrenal Glands: Unremarkable. Kidneys/Ureters/Bladder: No nephrolithiasis or collecting system dilatation. Unremarkable bladder. Reproductive Organs: Redemonstrated enlarged and lobulated uterus typical of multiple underlying fibr oids. The uterus overall has not significantly changed in size. The fibroids were better seen on the comparison exam which was with contrast. Colon: Within normal limits. Appendix: Normal. Small Bowel: Nonobstructed. Stomach: Unremarkable. Vasculature: Nonaneurysmal aorta. Lymph Nodes: Within normal limits. Peritoneum and Body Wall: Small volume free pelvic fluid which is most likely physiologic given patie nt age. No pneumoperitoneum. Bones: No acute or aggressive osseous process. Miscellaneous: None. Impression: 1. No acute abnormality seen throughout the abdomen or pelvis. 2. Redemonstration of several prominent fibroids. There are also masslike foci in both breasts that have not significantly changed from the prior and are most likely fibroadenomas. Recommend correlatio n with clinical exam. Electronically signed by: SARAH BARROSO MD (09/16/2020 11:56 PM) [facility] [id number]
[2020-09-17] MEDS ORDERED: NAPR-514 PO (00:06)
[2020-09-17] MEDS ORDERED: HYDR25TA PO (00:06)
[2020-09-17] MEDS ORDERED: DICY20TA3 PO (00:06)
[2020-09-17] MEDS ORDERED: HYDR-2761 PO (00:06)
[2020-09-17 00:18] VITALS: BP 111/69
== END 2020-09-17 00:20 | disposition home or self-care (01) ==
LOC: ER 22:23
DX: D25.9 Leiomyoma of uterus, unspecified (principal); D24.2 Benign neoplasm of left breast; D24.1 Benign neoplasm of right breast; F41.9 Anxiety disorder, unspecified
CPT/HCPCS: 36415; 74176; 80053; 80307; 81001; 81025; 83690; 83735; 85025; 96361; 96374; 96375; 99284; G0480; J0780; J2270; J3490; J7030